=== PATIENT | male | born 2000 | race Caucasian/White ===

== ENCOUNTER 2021-05-10 12:16 | Emergency (ER) | payer SELFPAY ==
[2021-05-10 13:23] VITALS: BP 125/82; PULSE 86; RESP 19; TEMP 37.3; O2SAT 97; BMI 22.6
--- NOTE | 2021-05-10 14:13 | PC.PHAR ---
PT STATES HE TAKES NO RX OR OTC MEDICATIONS-PT STATES HE USE TO HAVE AN INHALER BUT HASNT USED IN 2 YEARS
--- NOTE | 2021-05-10 14:27 | ED_ITS ---
HPI - SOB/Dyspnea General: Chief Complaint: Shortness of Breath/Dyspnea Stated Complaint: Chest pain Time Seen by Provider: 05/10/21 14:26 History of Present Illness: HPI Narrative: Mr Jay is a 20 year old gentleman with significant past medical history of cystic fibrosis who presents to the emergency department due to respiratory symptoms. Symptom onset was subacute approximately 3 days ago. He endorses subjective fevers, chills, malaise, cough, and shortness of breath. The intensity of symptoms is mild to moderate and worse with exertion. Overall the course has has been mildly worsening. He reports overall good health and it seems fairly mild symptoms of cystic fibrosis period last hospitalization was two or three years ago appeared he is compliant with his acapella device and chest physiotherapy. He is not on chronic antibiotics. He denies sick contacts. He denies other changes in health. He cannot think of any other specific exacerbating, alleviating, or provoking factors of his symptoms. Of note the patient is from [place] and recently moved here, he has not established with pulmonology. Review of Systems General: Reports: 10 or more systems reviewed and unremarkable except in HPI and below Narrative: CONSTITUTIONAL: See HPI EYES - denies pain, denies loss of vision EARS - denies ear issues. NOSE - denies congestion or rhinorrhea. THROAT - denies sore throat or difficulty swallowing. CARDIOVASCULAR - denies chest pain and palpitations RESPIRATORY - See HPI GASTROINTESTINAL - denies abdominal pain, no nausea vomiting, no changes in bowel habits GENITOURINARY - denies dysuria or urinary frequency MUSCULOSKELETAL- denies deformity, myalgias present. SKIN - denies rashes or new changed skin lesions NEUROLOGIC - denies focal weakness or sensory changes HEMATOLOGIC/LYMPHATIC - denies easy bruising or lymphadenopathy. PFS ED PFSH: Medical History (Updated 05/11/21 @ 20:55 by Rahul Shin MD) Cystic fibrosis Social History (Updated 05/11/21 @ 20:55 by Rahul Shin MD) Smoking and tobacco status: never smoked Physical Exam Narrative: EXAM NARRATIVE: GENERAL/CONSTITUTIONAL - midly ill-appearing. No acute distress. Eyes - PERRL, no conjunctival injection ENMT - Atraumatic external nose and ears. Moist mucous membranes NECK - supple. trachea midline CARDIOVASCULAR - regular rate and rhythm. Peripheral pulses 2+ and equal RESPIRATORY - mild rhonchi at bases. No retractions or accessory muscle use. ABDOMEN/GI - Nontender/Nondistended. No tenderness to percussion or evidence of peritonitis MSK - Extremities without obvious deformity or tenderness to palpation SKIN - Warm, Dry NEURO - alert and appropriately oriented. strength and sensation intact. Moves all extremities equally. PSYCH - Appropriate mood and affect Course ED course: - Monitor, IV access, and vital signs obtained. - The patient was seen and evaluated me at bedside. - Initial evaluation was notable for mildly ill appearance, no acute distress. quinton noticed at the bases without significant respiratory distress. - Labs and imaging were obtained and reviewed. - Labs notable for no significant abnormality. - Imaging notable for no lobar consolidation - I discussed the case with pulmonology on the call. Patient can be safely discharged given relatively well appearance. - The most likely cause for the patient's symptoms is unclear however given history there is clinical concern for atypical or developing pneumonia. - The results of ED evaluation were discussed with the patient including the need for follow up with PCP and pulmonology. Return precautions, follow up plan, and prescriptions (including responsible and appropriate use) were discussed with the patient. The patient verbalized understanding and felt safe for discharge. - Upon serial reexamation the patient's condition was improved. They were discharged without incident or clinical deterioration. Vital Signs: Vital signs: Vital Signs Temperature 98.6 F 05/10/21 18:24 Pulse Rate 97 05/10/21 18:24 Respiratory Rate 16 05/10/21 18:24 Blood Pressure 119/95 05/10/21 18:24 Pulse Oximetry 95 05/10/21 16:50 MDM - SOB/Dyspnea Medical Records: Attestation: I reviewed the patient's medical records. Lab Data: Attestation: I reviewed the patient's lab results. Labs: Lab Results 05/10/21 05/10/21 05/10/21 Range/Units 15:00 15:00 15:00 WBC 11.2 (4.5-13.0) 10^3/ uL RBC 5.30 (4.1-5.3) 10^6/u L Hgb 15.8 (11.7-16.6) g/dL Hct 45.0 (42.0-52.0) % MCV 84.9 (80-94) fL MCH 29.8 (28.0-34.0) pg MCHC 35.1 (30.0-36.0) g/dL RDW 11.6 L (12.1-15.1) % Plt Count 271 (130-400) 10^3/c mm MPV 9.4 (7.4-10.4) fL Neut % (Auto) 70.6 % Lymph % (Auto) 12.8 % [place] % (Auto) 10.8 % Eos % (Auto) 5.2 % Baso % (Auto) 0.4 % Neut # (Auto) 7.92 (1.8-8.0) 10^3/u L Lymph # (Auto) 1.4 L (1.5-6.5) 10^3/u L [place] # (Auto) 1.2 H (0.2-0.9) 10^3/u L Eos # (Auto) 0.6 (0.0-0.8) 10^3/u L Baso # (Auto) 0.1 (0.0-0.1) 10^3/u L Nucleated RBC % (a uto) 0 % Nucleated RBCs # 0.0 /100WBC Sodium 137 (136-145) mmol/L Potassium 3.6 (3.5-5.1) mmol/L Chloride 100 (98-107) mmol/L Carbon Dioxide 27 (22-29) mmol/L Anion Gap 13.6 (5-19) BUN 8 (6-20) mg/dL Creatinine 0.8 (0.7-1.2) mg/dL GFR Calculation 123.2 (90-130) mL/min Glucose 83 (65-115) mg/dL Calculated Osmolal ity 281 L (285-295) mOsm/k g Lactic Acid 1.0 (0.5-2.2) mmol/L Calcium 8.6 (8.5-10.5) mg/dL Total Bilirubin 0.8 (0.15-1.2) mg/dL AST 13 (0-40) U/L ALT 12 (0-41) U/L Alkaline Phosphata se 65 (40-130) IU/L C-Reactive Protein 56.3 H (0.0-4.9) mg/L Total Protein 6.6 (6.6-8.7) g/dL Albumin 4.2 (3.5-5.2) g/dL Globulin 2.4 (1.3-4.6) g/dL Procalcitonin 0.06 (0-0.5) ng/mL SARS-CoV-2 Ag (Rap id) (Negative) 05/10/21 Range/Units 15:00 WBC (4.5-13.0) 10^3/ uL RBC (4.1-5.3) 10^6/u L Hgb (11.7-16.6) g/dL Hct (42.0-52.0) % MCV (80-94) fL MCH (28.0-34.0) pg MCHC (30.0-36.0) g/dL RDW (12.1-15.1) % Plt Count (130-400) 10^3/c mm MPV (7.4-10.4) fL Neut % (Auto) % Lymph % (Auto) % [place] % (Auto) % Eos % (Auto) % Baso % (Auto) % Neut # (Auto) (1.8-8.0) 10^3/u L Lymph # (Auto) (1.5-6.5) 10^3/u L [place] # (Auto) (0.2-0.9) 10^3/u L Eos # (Auto) (0.0-0.8) 10^3/u L Baso # (Auto) (0.0-0.1) 10^3/u L Nucleated RBC % (a uto) % Nucleated RBCs # /100WBC Sodium (136-145) mmol/L Potassium (3.5-5.1) mmol/L Chloride (98-107) mmol/L Carbon Dioxide (22-29) mmol/L Anion Gap (5-19) BUN (6-20) mg/dL Creatinine (0.7-1.2) mg/dL GFR Calculation (90-130) mL/min Glucose (65-115) mg/dL Calculated Osmolal ity (285-295) mOsm/k g Lactic Acid (0.5-2.2) mmol/L Calcium (8.5-10.5) mg/dL Total Bilirubin (0.15-1.2) mg/dL AST (0-40) U/L ALT (0-41) U/L Alkaline Phosphata se (40-130) IU/L C-Reactive Protein (0.0-4.9) mg/L Total Protein (6.6-8.7) g/dL Albumin (3.5-5.2) g/dL Globulin (1.3-4.6) g/dL Procalcitonin (0-0.5) ng/mL SARS-CoV-2 Ag (Rap id) Negative (Negative) Discharge Plan Discharge Patient Disposition: Home Clinical Impression: Cystic fibrosis, Pneumonia Condition: Stable Prescriptions: New doxycycline hyclate 100 mg tablet 100 mg PO BID 14 Days Qty: 28 RF: 0 Discharge Orders: Discharge ED (Routine); Ordered 05/10/21 Ordered By: Rahul Shin Discharge Diet: Usual diet Discharge Activity: Resume usual activity Patient Instructions: Cystic Fibrosis (ED), Pneumonia (ED) Activity Restrictions/Additional Instructions: Thank you for visiting the emergency department. You were seen and evaluated for respiratory symptoms. The exact cause of this is somewhat unclear though given underlying medical condition you will be given a prescription for antibiotics. Please follow-up with your primary care provider. Please return to the emergency department for worsening of your symptoms or anything else that you are concerned about and feel needs emergency department evaluation. Coding Level of Care Code ED Editor Greeting Card for Rashaad Mckenna
--- NOTE | 2021-05-10 14:40 | XRR_ITS ---
PROCEDURE INFORMATION: Exam: XR Chest Exam date and time: 05/10/2021 2:40 PM Age: 20 years old Clinical indication: Shortness of breath; Angina pectoris; Patient HX: Headache, SOB, pain upon inhalation, cystic fibrosis; Additional info: Cough, SOB, cf TECHNIQUE: Imaging protocol: XR of the chest. Views: 2 views. COMPARISON: No relevant prior studies available. FINDINGS: Lungs: Unremarkable. No consolidation. Pleural spaces: Unremarkable. No pleural effusion. No pneumothorax. Heart/Mediastinum: Unremarkable. No cardiomegaly. Bones/joints: No acute findings. XR/XR chest 2V* [id number] IMPRESSION: No acute findings.
[2021-05-10 15:17] LABS: Basophils # 0.1 10^3/uL (0.0-0.1); Basophils % 0.4 %; Eosinophils # 0.6 10^3/uL (0.0-0.8); Eosinophils % 5.2 %; Hemoglobin 15.8 g/dL (11.7-16.6); Lymphocytes # 1.4 10^3/uL (1.5-6.5); Lymphocytes % 12.8 %; Mean Corpuscular HGB Conc 35.1 g/dL (30.0-36.0); Mean Corpuscular Hemoglobin 29.8 pg (28.0-34.0); Mean Corpuscular Volume 84.9 fL (80-94); Mean Platelet Volume 9.4 fL (7.4-10.4); Monocytes # 1.2 10^3/uL (0.2-0.9); Monocytes % 10.8 %; Neutrophils # 7.92 10^3/uL (1.8-8.0); Neutrophils % 70.6 %; Nucleated Red Blood Cells % 0 %; Platelet Count 271 10^3/cmm (130-400); Red Cell Distribution Width 11.6 % (12.1-15.1); White Blood Count 11.2 10^3/uL (4.5-13.0)
[2021-05-10 15:48] LABS: Alanine Aminotransferase 12 U/L (0-41); Albumin Level 4.2 g/dL (3.5-5.2); Alkaline Phosphatase 65 IU/L (40-130); Anion Gap 13.6 (5-19); Aspartate Amino Transferase 13 U/L (0-40); Blood Urea Nitrogen 8 mg/dL (6-20); C Reactive Protein 56.3 mg/L (0.0-4.9); Calcium 8.6 mg/dL (8.5-10.5); Carbon Dioxide 27 mmol/L (22-29); Chloride 100 mmol/L (98-107); Creatinine Clr Calc Pharmacy 150.9733; Globulin 2.4 g/dL (1.3-4.6); Glomerular Filtration Rate 123.2 mL/min (90-130); Glucose 83 mg/dL (65-115); Osmolality Calculated 281 mOsm/kg (285-295); Potassium 3.6 mmol/L (3.5-5.1); Sodium 137 mmol/L (136-145); Total Bilirubin 0.8 mg/dL (0.15-1.2); Total Protein 6.6 g/dL (6.6-8.7)
[2021-05-10 15:53] LABS: Procalcitonin 0.06 ng/mL (0-0.5)
[2021-05-10 16:47] LABS: SARS Covid-2 Antigen Negative (Negative)
[2021-05-10 16:50] VITALS: BP 129/76; PULSE 83; RESP 16; O2SAT 95
[2021-05-10] MEDS: doxycycline 100 mg Tablet PO (18:15)
[2021-05-10 18:24] VITALS: BP 119/95; PULSE 97; RESP 16; TEMP 37
--- NOTE | 2021-05-11 10:00 | DCPLANNER ---
manager water wastewater had message to schedule a follow up appointment for patient with [facility]. manager water wastewater called [facility], spoke with Kalee, gave clinic patients information. A follow up appointment was scheduled for Tuesday, May 25, 2021 at 3:[address] Gloria. manager water wastewater called phone number [phone], this number is no longer in service. manager water wastewater called phone number [phone], and unable to speak with anyone at this time, unable to leave a voicemail for patient due to no voicemail set up. manager water wastewater also called phone number [phone] and it was a busy signal. manager water wastewater sent patient a letter with the appointment information and phone number to clinic included.
--- NOTE | 2021-05-27 08:22 | DCPLANNER ---
Patient had a follow up appointment scheduled with [facility], pulmonology - appointment was rescheduled for a later date.
== END 2021-05-10 18:26 | disposition home or self-care (01) ==
PROVIDERS: Emergency Provider Emergency Medicine
DX: J18.9 Pneumonia, unspecified organism (principal); E84.9 Cystic fibrosis, unspecified
CPT/HCPCS: 71046; 80053; 83605; 84145; 85025; 86140; 87040; 87426; 99283

== ENCOUNTER 2023-04-16 12:09 | Emergency (ER) | payer MEDICAID, SELFPAY ==
[2023-04-16 13:19] VITALS: BP 121/81; PULSE 71; RESP 16; TEMP 36.3; O2SAT 97; BMI 25.8
--- NOTE | 2023-04-16 13:34 | W.ED.SKABFB ---
HPI - Skin/Abscess/Foreign Bdy General: Chief complaint: Skin/Abscess/Foreign Body Stated complaint: eye injury/swelling Time Seen by Provider: 04/16/23 13:28 Source: patient Mode of arrival: ambulatory Limitations: no limitations History of Present Illness: Patient is a 22-year-old male presents to ED today for possible exposure to poison miguelina. Patient states they were cleaning out some brush when he was told by a coworker that he had whelps surrounding his eyes and that his right eye was red and swollen. Patient states he has never had poison miguelina before. He denies foreign body sensation or eye injury. Denies any chemical exposure. MD complaint: other (facial swelling, R eye swollen/red) Onset (ago): hour(s) Tetanus up to date: yes Location: face (eye) Severity: mild Quality: burning and pruritic Pain Consistency: constant Relieving factors: none Exacerbating factors: none Context: other (clearing out brush) Associated symptoms: Reports no associated symptoms; Deny chills, fever(s), nausea or vomiting Treatments prior to arrival: none Review of Systems Const: Denies: fever(s), chills, body aches, fatigue or malaise Eyes: Reports: change in vision (slightly blurry); Denies: photophobia, eye discharge, floaters or seeing flashes ENMT: Denies: swelling of lips/tongue Card: Denies: chest pain Resp: Denies: dyspnea GI: Denies: abdominal pain, nausea or vomiting Skin/Breast: Reports: pruritus Neuro: Denies: headache(s), numbness in extremities, weakness in extremities, sensory changes or dizziness [facility] ED PFSH: Medical History Cystic fibrosis Social History Smoking and tobacco status: never smoked Physical Exam Const: COMMON NORMALS: no acute distress, average body habitus, patient oriented x3, no limitations, healthy appearing, alert and well nourished HENMT: COMMON NORMALS: normocephalic and atraumatic HEAD & SCALP: normal to inspection, normocephalic and atraumatic FACE & SINUS: normal facial exam and other (he reports whelps have subsided) MOUTH: Normal oral and palatal mucosa present, lip normal and tongue normal THROAT: posterior oropharynx normal Eye: COMMON NORMALS: Equal, round and reactive pupils present and EOMs intact bilaterally GENERAL EYE: normal light reflex CONJUNCTIVA: Yes conjunctival abnormal positive right conjunctival injection SCLERA: sclerae normal CORNEA: Yes corneas normal and fluorescein used PUPIL: Yes Equal, round and reactive pupils present DIRECT OPHTHALMOSCOPY: Yes normal light reflex Neck/C-Spine: COMMON NORMALS: full ROM and no lymphadenopathy GENERAL: Yes normal visual inspection Resp: COMMON NORMALS: normal respiratory effort and clear to auscultation bilaterally AUSCULTATION: clear to auscultation bilaterally Cardio: COMMON NORMALS: regular rate and regular rhythm RATE: regular rate RHYTHM: regular rhythm Extremity: COMMON NORMALS: normal to inspection GENERAL: Yes normal exam except as noted Neuro: COMMON NORMALS: patient oriented x3, moves all extremities, no focal motor deficits and no sensory deficits noted SENSORIUM/ORIENTATION: Yes alert Skin: COMMON NORMALS: no rashes or lesions noted GENERAL SKIN EXAM: no rashes or lesions noted Course Vital Signs: Vital signs: Vital Signs Temperature 97.3 F L 04/16/23 13:19 Pulse Rate 71 04/16/23 13:19 Respiratory Rate 16 04/16/23 13:19 Blood Pressure 121/81 04/16/23 13:19 Pulse Oximetry 97 04/16/23 13:19 Oxygen Delivery Me thod Room Air 04/16/23 13:19 MDM - Skin/Abscess/Foreign Bdy Medicial Decision Making I was stained to assess for any type of foreign body that could have entered his eye while clearing brush/corneal abrasion. This was negative. She will be treated for steroids for a possible allergic reaction to plant exposure. Return ED precautions given. Discharge Plan Discharge Patient Disposition: Home Clinical Impression: Allergic contact dermatitis due to plant Condition: Stable Prescriptions: New prednisone 10 mg tablet 10 mg PO DAILY 10 Days Qty: 20 0RF Rx Instructions: Take 5 tabs on day 1-2, 4 tabs on day 3, 3 tabs on day 4, 2 tabs on day 5, and 1 tab on day 6 Discharge Orders: Discharge ED (Routine); Ordered 04/16/23 Ordered By: Aurea Cardenas Activity Restrictions/Additional Instructions: You may also take 50mg Benadryl to help with burning/tiching. You need to seek medical reevaluation for any new foreign body sensation to the eye, diffuse drainage, visual changes or visual loss, severe eye pain, or any other concerns you may have. Coding Level of Care Code ED Reinforcing Metal Worker for Rashaad Mckenna
[2023-04-16] MEDS: tetracaine 0.5% Op Soln 4 mL Btl 1 DROP EYE-RIGHT (13:50)
[2023-04-16] MEDS: fluorescein 1 mg Strip EYE-RIGHT (13:50)
[2023-04-16] MEDS: eye irrigation 30 mL Btl EYE-RIGHT (13:50)
[2023-04-16] MEDS: hydrocortisone 100 mg/2 mL SDV 50 MG IM (14:21)
--- NOTE | 2023-04-25 13:37 | DCPLANNER ---
athletic equipment manager called patient due to no primary care physician - no answer at this time.
== END 2023-04-16 14:26 | disposition home or self-care (01) ==
PROVIDERS: Emergency Provider Physician Assistant
DX: L23.7 Allergic contact dermatitis due to plants, except food (principal); E84.9 Cystic fibrosis, unspecified
CPT/HCPCS: 96372; 99284; J1720